=== PATIENT | female | born 1980 | race Hispanic/Latino ===

== ENCOUNTER 2020-12-16 09:05 | Emergency (ER) | payer MEDICAID ==
[~2020-12-16] VITALS: Ht 162.6 cm; Wt 92.5 kg
[2020-12-16 09:06] VITALS: BP 119/82
[2020-12-16] MEDS ORDERED: SULF1TAB42 PO (10:10)
[2020-12-16] MEDS ORDERED: SULFAMETHOX-TMP DS 800/160 TAB PO SCH (10:30)
== END 2020-12-16 10:37 | disposition home or self-care (01) ==
LOC: EDH 09:05
DX: N75.1 Abscess of Bartholin's gland (principal); E78.00 Pure hypercholesterolemia, unspecified; I10 Essential (primary) hypertension; E03.9 Hypothyroidism, unspecified; M32.9 Systemic lupus erythematosus, unspecified; Z88.8 Allergy status to other drugs, medicaments and biological substances
CPT/HCPCS: 56420; 87070; 87076; 87077; 87186

== ENCOUNTER 2021-10-01 11:39 | Emergency (ER) | payer MEDICAID ==
[~2021-10-01] VITALS: Ht 162.6 cm; Wt 88.9 kg
[~2021-10-01 11:39] MED LIST: SULF1TAB42 PO
[2021-10-01] MEDS ORDERED: PROCHLORPERAZINE 10MG/2ML INJ IV SCH (12:30)
[2021-10-01] MEDS ORDERED: DiphenhydrAMINE HCL 50 MG/ML VIAL IV SCH (12:30)
[2021-10-01 12:41] LABS: BASOPHILS % (AUTO) 0.7 % (0.0-5.0); EOSINOPHILS % (AUTO) 1.2 % (0.0-8.0); HEMATOCRIT 40.2 % (36-48); LYMPHOCYTES % (AUTO) 21.5 % (21.0-51.0); MEAN CORPUSCULAR HEMOGLOBIN 27.8 pg (27.0-33.0); MEAN CORPUSCULAR HGB CONC 33.3 g/dL (32.0-36.0); MEAN CORPUSCULAR VOLUME 83.4 fL (79-99); MONOCYTES % (AUTO) 4.4 % (3.0-13.0); NEUTROPHILS % (AUTO) 71.9 % (40.0-77.0); PLATELET COUNT (AUTO) 189 K/uL (130-400); RED BLOOD CELL COUNT(AUTO) 4.82 MIL/uL (4.00-5.50); RED CELL DISTRIBUTION WIDTH 13.3 % (11.0-15.5); WHITE BLOOD COUNT (AUTO) 8.9 K/uL (4.8-10.8)
[2021-10-01 12:47] LABS: APPEARANCE,URINE SL CLOUDY (CLEAR); BILIRUBIN,URINE NEGATIVE (NEGATIVE); COLOR,URINE YELLOW (YELLOW); GLUCOSE, URINE (UA) NEGATIVE (NEGATIVE); KETONES,URINE NEGATIVE (NEGATIVE); LEUKOCYTE ESTERASE ,URINE NEGATIVE (NEGATIVE); NITRATE,URINE NEGATIVE (NEGATIVE); OCCULT BLOOD,URINE NEGATIVE (NEGATIVE); PROTEIN,URINE NEGATIVE (NEGATIVE); UROBILINOGEN,URINE 0.2 mg/dL (0.2-1.0)
[2021-10-01 12:49] LABS: CREATININE 0.8 mg/dL (0.5-1.5); POTASSIUM 4.5 mmol/L (3.5-5.1)
[2021-10-01 12:53] LABS: HCG,QUALITATIVE URINE NEGATIVE (NEGATIVE); INR 0.94 (0.85-1.15); PROTHROMBIN TIME 10.3 SEC (9.6-11.6)
[2021-10-01 12:54] LABS: ALBUMIN 3.7 g/dL (3.5-5.0); PARTIAL THROMBOPLASTIN TIME 23.8 SEC (26.3-35.5); TOTAL PROTEIN, SERUM 7.7 g/dL (6.0-8.3)
[2021-10-01 13:10] LABS: BACTERIA,URINE Moderate /HPF (None Seen)
[2021-10-01 13:11] LABS: RBC,URINE 0-1 /HPF (0-1)
[2021-10-01] MEDS ORDERED: KETOROLAC 15MG/ML VIAL (15MG/ML) IV ONE (14:00)
[2021-10-01 14:37] VITALS: BP 106/50
== END 2021-10-01 14:38 | disposition home or self-care (01) ==
LOC: EDH 11:39
DX: G43.909 Migraine, unspecified, not intractable, without status migrainosus (principal); E11.9 Type 2 diabetes mellitus without complications; I10 Essential (primary) hypertension; Z86.73 Personal history of transient ischemic attack (TIA), and cerebral infarction without residual deficits
CPT/HCPCS: 99284; 70551; 96374; 96375; 80053; 85025; 85610; 85730; 87088; 81001; 81025; 36415; J1200; J0780; J1885

== ENCOUNTER → 2023-11-09 | Outpatient (CLI) | payer MEDICAID | END | disposition home or self-care (01) | LOC: RAH 14:17 | PROVIDERS: ATTEND Internal Medicine Hematology & Oncology | DX: R06.02 Shortness of breath (principal) | CPT/HCPCS: 93306; 93356 ==